=== PATIENT | female | born 1965 | race Two or more races ===

== ENCOUNTER → 2021-03-17 | Outpatient (CLI) | payer BC ==
--- NOTE | 2021-03-24 10:22 | KCIC ---
Bilateral digital screening mammograms with 3-D tomosynthesis: Reason for examination: Routine screening. Negative previous exams available for comparison. Bilateral mammograms in CC and oblique projections were obtained with 2-D imaging and 3-D tomosynthes is imaging on a Siemens Inspiration unit and reviewed on the workstation. Interpretation was made wit h the benefit of CAD. The skin and nipples show no abnormalities. No abnormal axillary lymph nodes are seen. The breast par enchyma is heterogeneously dense. (Breast density: Category C.) There appear to be small nodular pare nchymal densities bilaterally. Further evaluation with ultrasound is recommended. There are no suspic ious calcifications. Impression: Small nodular parenchymal densities bilaterally throughout the breasts. Recommend bilateral breast ul trasound. Your patient's mammogram demonstrates that she has dense breast tissue (breast density category C or D), which could hide abnormalities, and if she has other risk factors for breast cancer that have bee n identified, she might benefit from supplemental screening tests that may be suggested by you as her ordering physician. Dense breast tissue, in and of itself, is a relatively common condition. Therefo re, this information is not provided to cause undue concern, but rather to raise your awareness and t o promote discussion with your patient regarding the presence of other risk factors, in addition to d ense breast tissue. Your patient's mammography results will be sent to her. BI-RAD Category 0: Incomplete. Needs additional imaging evaluation. "Our facility is accredited by the [employer] Mammography Program." This patient's information has been entered into a reminder system for the patient to be notified wit h the results of her examination and a target date for the next mammogram. Electronically signed by: Serene Palacios MD (03/24/2021 10:19 AM) [id number]
== END ==
LOC: KCIC MAMMO 08:06
PROVIDERS: ATTEND Family Medicine
DX: Z12.31 Encounter for screening mammogram for malignant neoplasm of breast (principal); N64.89 Other specified disorders of breast
CPT/HCPCS: 77063; 77067

== ENCOUNTER → 2021-04-04 | Outpatient (CLI) | payer BC ==
--- NOTE | 2021-04-04 13:50 | RAD ---
US BREAST BILAT 04/04/2021 8:04 AM INDICATION: Small nodular parenchymal densities bilaterally throughout the breasts. COMPARISON: Bilateral mammogram 03/17/2021 TECHNIQUE: Complete ultrasound of the breasts bilaterally with imaging of all 4 quadrants and retroar eolar regions. FINDINGS: Right: No suspicious masses or areas of architectural distortion. No calcifications are identified. Left: At the 9:00 position, 5 cm from the nipple there is a circumscribed hypoechoic mass without pos terior acoustic characteristics. This finding is parallel in orientation without suspicious feature. This finding is probably benign and suggestive of a fibroadenoma. 3 month follow-up ultrasound of lef t breast is recommended. At the 11:00 position, 6 cm from the nipple there is a lobulated hypoechoic mass which is suggestive of a cluster of cysts measuring 8 x 4 mm. There is posterior acoustic enhanc ement. No suspicious features. No calcifications. Attention on 3 month follow-up left breast ultrasou nd is recommended. IMPRESSION: 1. Negative right mammogram. 2. Probably benign findings of the left breast with findings at the 11:00 position, 6 cm from the nip ple and 9:00 position, 5 cm the nipple for which three-month follow-up left breast ultrasound is edwin mmended. BI-RADS category: 3; Probably Benign Recommendations: 3 month follow-up left breast ultrasound. Electronically signed by: Kika Rocha MD (04/04/2021 1:48 PM) [id number]
== END ==
LOC: US 07:36
PROVIDERS: ATTEND Family Medicine
DX: N63.22 Unspecified lump in the left breast, upper inner quadrant (principal); R92.8 Other abnormal and inconclusive findings on diagnostic imaging of breast
CPT/HCPCS: 76641-50